=== PATIENT | female | born 1965 | race Caucasian/White ===

== ENCOUNTER 2018-05-03 06:41 | Emergency (ER) | payer MEDICAID ==
[~2018-05-03] VITALS: Ht 170.2 cm; Wt 79.0 kg
[2018-05-03 06:56] VITALS: BP 106/58
== END 2018-05-03 08:34 | disposition home or self-care (01) ==
LOC: ER 07:30
DX: H00.021 Hordeolum internum right upper eyelid (principal); F12.10 Cannabis abuse, uncomplicated; F17.200 Nicotine dependence, unspecified, uncomplicated; Z98.890 Other specified postprocedural states; Z98.51 Tubal ligation status
CPT/HCPCS: 99283

== ENCOUNTER 2019-01-07 17:32 | Emergency (ER) | payer MEDICAID ==
[~2019-01-07] VITALS: Ht 170.2 cm; Wt 75.0 kg
[2019-01-07 19:30] VITALS: BP 127/62
== END 2019-01-07 20:23 | disposition home or self-care (01) ==
LOC: ER 17:32
DX: M25.532 Pain in left wrist (principal); F31.9 Bipolar disorder, unspecified; M41.9 Scoliosis, unspecified; F12.10 Cannabis abuse, uncomplicated; F17.210 Nicotine dependence, cigarettes, uncomplicated; Z90.89 Acquired absence of other organs; Z88.0 Allergy status to penicillin; Z88.2 Allergy status to sulfonamides; W01.0XXA Fall on same level from slipping, tripping and stumbling without subsequent striking against object, initial encounter; Y93.89 Activity, other specified; Y92.018 Other place in single-family (private) house as the place of occurrence of the external cause
CPT/HCPCS: 73110; 99283

== ENCOUNTER 2019-02-22 20:58 | Emergency (ER) | payer MEDICAID ==
[~2019-02-22] VITALS: Ht 170.2 cm; Wt 85.0 kg
[2019-02-22 21:18] VITALS: BP 146/71
== END 2019-02-23 00:27 | disposition left against medical advice (07) ==
LOC: ER 20:58
DX: Z53.21 Procedure and treatment not carried out due to patient leaving prior to being seen by health care provider (principal)